=== PATIENT | male | born 1980 | race Caucasian/White ===

== ENCOUNTER 2023-08-01 00:23 | Emergency (ER) | payer SELFPAY ==
[~2023-08-01] VITALS: Ht 172.7 cm; Wt 75.0 kg
[2023-08-01 00:28] VITALS: BP 127/75; PULSE 112; RESP 18; TEMP 98.1; O2SAT 99
[2023-08-01] MEDS ORDERED: IBUP-2028 MT (01:55)
== END 2023-08-01 03:05 ==
LOC: ER 00:23
DX: S62.397A Other fracture of fifth metacarpal bone, left hand, initial encounter for closed fracture (principal); X58.XXXA Exposure to other specified factors, initial encounter; Y93.89 Activity, other specified; Y92.89 Other specified places as the place of occurrence of the external cause; Y99.8 Other external cause status
CPT/HCPCS: 29125; 73130; 99283